=== PATIENT | male | born 1985 | race Hispanic/Latino ===

== ENCOUNTER 2019-03-16 10:29 | Emergency (ER) | payer OTHER ==
[2019-03-16] MEDS ORDERED: TORADOL IM ONE (10:56)
--- NOTE | 2019-03-16 11:01 | Emergency Department Report ---
HPI - General Chief Complaint: Medical Clearance Time Seen by Provider: 03/16/19 10:48 - HPI HPI: Room 22 The patient is a 33-year-old male presenting with a chief complaint of back pain. The patient states he's had chronic pain in his low back and bilateral shoulder blades for approximately 1.5 years. The patient states this pain worsened over the past 2 months. Patient denies any recent trauma or fever. Patient states Tylenol and ibuprofen have not helped. The patient has a history of paroxysmal A. fib and states he believes his back pain causes his heart fluttering at times. The patient currently gets his pain score 10/10 Location: [See above] Duration: [See above] Quality: [See above] Severity: [See above] Modifying factors: [see above] Context: [see above] Mode of transportation: [not driving] ED Past Medical Hx - Past Medical History Additional medical history: AFIB - Surgical History Past Surgical History?: No - Family History Family history: no significant - Social History Smoking Status: Current Every Day Smoker (1/2 pack per day) Substance Use Type: Marijuana - Medications Home Medications: Home Medications Medication Instructions Recorded Confirmed Last Taken Type Cyclobenzaprine [Flexeril] 10 mg PO TID PRN #14 tablet 03/16/19 Unknown Rx HYDROcodone/APAP 5-325 [[place] 1 - 2 each PO Q6HR PRN #14 tablet 03/16/19 Unknow n Rx 5/325] Ibuprofen [Motrin 800 MG tab] 800 mg PO Q8HR PRN #20 tablet 03/16/19 Unknown Rx ED Review of Systems ROS: Stated complaint: BACK PAIN Other details as noted in HPI Constitutional: denies: fever Eyes: denies: eye pain ENT: denies: throat pain Respiratory: no symptoms reported Cardiovascular: palpitations Endocrine: no symptoms reported Gastrointestinal: denies: abdominal pain Genitourinary: denies: dysuria Musculoskeletal: back pain Neurological: denies: headache Physical Exam - Physical Exam Vital Signs: Vital Signs 03/16/19 03/16/19 03/16/19 10:35 10:52 10:53 Temperature 97.9 F 97.9 F Pulse Rate 101 H 86 Respiratory 20 21 21 Rate Blood Pressure 146/96 Blood Pressure 136/73 [Left] O2 Sat by Pulse 99 94 95 Oximetry Physical Exam: GENERAL: The patient is well-developed well-nourished male lying on stretcher not appearing to be in acute distress. [] HEENT: Normocephalic. Atraumatic. Extraocular motions are intact. Patient has moist mucous membranes. NECK: Supple. No meningitic signs are noted. Trachea midline CHEST/LUNGS: Clear to auscultation. There is no respiratory distress noted. HEART/CARDIOVASCULAR: Regular. There is no tachycardia. There is no gallop rub or murmur. ABDOMEN: Abdomen is soft, nontender. Patient has normal bowel sounds. There is no abdominal distention. SKIN: There is no rash. There is no edema. There is no diaphoresis. NEURO: The patient is awake, alert, and oriented. The patient is cooperative. The patient has no focal neurologic deficits. The patient has normal speech. Cranial nerves II through XII grossly intact, no drift MUSCULOSKELETAL: There is no evidence of acute injury. ED Course Vital Signs 03/16/19 03/16/19 03/16/19 10:35 10:52 10:53 Temperature 97.9 F 97.9 F Pulse Rate 101 H 86 Respiratory 20 21 21 Rate Blood Pressure 146/96 Blood Pressure 136/73 [Left] O2 Sat by Pulse 99 94 95 Oximetry ED Medical Decision Making - EKG Data -: EKG Interpreted by Me EKG shows normal: sinus rhythm Rate: normal - EKG Data When compared to previous EKG there are: previous EKG unavailable Interpretation: normal EKG - Radiology Data Radiology results: image reviewed (lumbar spine x-ray) interpreted by me: Lumbar spine x-ray-no acute fracture. Normal disc spaces - Differential Diagnosis acute on chronic back pain Critical care attestation.: If time is entered above; I have spent that time in minutes in the direct care of this critically ill patient, excluding procedure time. ED Disposition Clinical Impression: Acute exacerbation of chronic low back pain Disposition: DC-01 TO HOME OR SELFCARE Is pt being admited?: No Does the pt Need Aspirin: No Condition: Stable Instructions: Chronic Back Pain (ED) Additional Instructions: Return to the emergency department immediately should you develop worsening symptoms, fever, inability to tolerate food or liquid or any other concerns. Prescriptions: Cyclobenzaprine [Flexeril] 10 mg PO TID PRN #14 tablet PRN Reason: Muscle Spasm Ibuprofen [Motrin 800 MG tab] 800 mg PO Q8HR PRN #20 tablet PRN Reason: Pain, Moderate (4-6) HYDROcodone/APAP 5-325 [[place] 5/325] 1 - 2 each PO Q6HR PRN #14 tablet PRN Reason: Pain Referrals: KATHRYN HANSON MD [Staff Physician] - 3-5 Days JOSE ENRIQUE PALAFOX MD [Staff Physician] - 3-5 Days (Dr. Palafox is an orthopedic surgeon. Please follow with him for further evaluation) Time of Disposition: 12:06
[2019-03-16 12:27] VITALS: BP 121/71
--- NOTE | 2019-03-16 14:25 | XRay Report ---
PROCEDURE: XR SPINE LUMBOSACRAL 2-3V TECHNIQUE: AP, lateral and lumbosacral spot views of the lumbar spine. HISTORY: low back pain COMPARISONS: None. FINDINGS: There are five lumbar type vertebral bodies. Mild anterior osteophyte formations are seen in the lowe r thoracic and mid lumbar spine. Normal alignment. No compression fracture. The disc spaces are maintained. The paravertebral soft tissues are normal. IMPRESSION: Mild degenerative spondylosis of the lower thoracic and lumbar spine. This document is electronically signed by Aspen Coello., March 16 2019 02:23:45 PM ET
== END 2019-03-16 12:34 | disposition home or self-care (01) ==
LOC: ED 10:29
DX: M54.5 Low back pain (principal); M25.511 Pain in right shoulder; M25.512 Pain in left shoulder; F17.200 Nicotine dependence, unspecified, uncomplicated; F12.10 Cannabis abuse, uncomplicated
CPT/HCPCS: 72100; 93005; 93010; 96372; 99283; J1885

== ENCOUNTER 2019-09-07 13:09 | Emergency (ER) | payer OTHER ==
[2019-09-07 13:17] VITALS: BP 156/90
== END 2019-09-07 17:12 | disposition home or self-care (01) ==
LOC: ED 13:09
DX: R10.10 Upper abdominal pain, unspecified (principal); M54.9 Dorsalgia, unspecified; I48.91 Unspecified atrial fibrillation; F10.10 Alcohol abuse, uncomplicated; F17.200 Nicotine dependence, unspecified, uncomplicated; F12.10 Cannabis abuse, uncomplicated; Z79.899 Other long term (current) drug therapy
CPT/HCPCS: 36415; 72072; 80053; 85025

== ENCOUNTER 2021-01-29 14:27 | Observation (INO) | payer SELFPAY ==
--- NOTE | 2021-01-29 14:46 | Event Note ---
ED Screening Note ED Screening Note: Patient presents for chest pain, palpitations, diaphoresis, shortness of breath that began 4 hours ago Patient has a history of A. fib and has been off of his metoprolol for few months He states he previously was a heavy drinker but stopped drinking which improved his A. fib He denies being on any anticoagulation He states he does take an aspirin daily He states he has a history of chronic pain and previously took Lortab He denies any medication allergies This initial assessment/diagnostic orders/clinical plan/treatment(s) is/are subject to change based on patients health status, clinical progression and re- assessment by fellow clinical providers in the ED. Further treatment and workup at subsequent clinical providers discretion. Patient/guardian urged not to elope from the ED as their condition may be serious if not clinically assessed and managed. Initial orders include: Chest pain protocol EKG shows A. fib with rate of 160 Charge nurse katy MCKEON notified, she states that patient go to room 17 in the main ED
[2021-01-29] MEDS ORDERED: METOPROLOL TARTRATE 5 MG/5 ML INJ IV ONE (15:09)
[2021-01-29] MEDS ORDERED: SODIUM CHLORIDE 0.9% 1000 ML 1,000 ML IV ONE ×2 (15:18→16:55)
[2021-01-29 15:23] LABS: Mean Corpuscular HGB Conc 36 % (32-34); Mean Corpuscular Volume 90 fl (84-94); Platelet Count 415 K/mm3 (140-440); Red Blood Count 5.49 M/mm3 (3.65-5.03); Red Cell Distribution Width 13.8 % (13.2-15.2)
[2021-01-29 15:37] LABS: Alanine Aminotransferase 9 units/L (7-56); Albumin 4.8 g/dL (3.9-5); BUN/Creatinine Ratio 11; Blood Urea Nitrogen 9 mg/dL (9-20); Calcium 9.7 mg/dL (8.4-10.2); Hemolysis Index 3
--- NOTE | 2021-01-29 15:38 | Emergency Department Report ---
ED Palpitations HPI - General Chief Complaint: Chest Pain Stated Complaint: CHEST PAINS Time Seen by Provider: 01/29/21 14:43 Source: patient Mode of arrival: Ambulatory Limitations: No Limitations - History of Present Illness Initial Comments: 35-year-old male presents to ED with palpitations. Patient states, "I think it is my A. fib." Patient states he was diagnosed with A. fib at age of 26. Reports onset of the palpitations while he was watching TV. Patient reports heart racing, whole body paresthesias, some mild shortness of breath. He denies any chest pain. Patient reports he stopped taking his metoprolol approximately 8 months ago because he states that he cannot afford it. Patient reports tobacco and marijuana use. MD Complaint: "heart racing", atrial fibrillation -: This afternoon Context: occured during rest Arrythmia History: atrial fibrillation Associated Symptoms: shortness of breath. denies: chest pain, syncope, nausea/vomiting, cough - Related Data Previous Rx's Medication Instructions Recorded Last Taken Type Cyclobenzaprine [Flexeril] 10 mg PO TID PRN #14 tablet 03/16/19 Unknown Rx HYDROcodone/APAP 5-325 [[place] 1 - 2 each PO Q6HR PRN #14 tablet 03/16/19 Unknown Rx 5/325] Ibuprofen [Motrin 800 MG tab] 800 mg PO Q8HR PRN #20 tablet 03/16/19 Unknown Rx Meloxicam [Mobic] 15 mg PO DAILY #10 tablet 09/07/19 Unknown Rx Allergies Allergy/AdvReac Type Severity Reaction Status Date / Time No Known Allergies Allergy Unverified 03/16/19 10:30 ED Review of Systems ROS: Stated complaint: CHEST PAINS Other details as noted in HPI Comment: All other systems reviewed and negative Constitutional: denies: chills, fever Respiratory: shortness of breath Cardiovascular: palpitations. denies: chest pain ED Past Medical Hx - Past Medical History Previous Medical History?: Yes Hx Heart Attack/AMI: (a Fib) Hx Psychiatric Treatment: Yes (Alcoholic) Additional medical history: AFIB, Alcohol abuse - Social History Smoking Status: Current Every Day Smoker Substance Use Type: Marijuana - Medications Home Medications: Home Medications Medication Instructions Recorded Confirmed Last Taken Type Cyclobenzaprine [Flexeril] 10 mg PO TID PRN #14 tablet 03/16/19 Unknown Rx HYDROcodone/APAP 5-325 [[place] 1 - 2 each PO Q6HR PRN #14 tablet 03/16/19 Unknown Rx 5/325] Ibuprofen [Motrin 800 MG tab] 800 mg PO Q8HR PRN #20 tablet 03/16/19 Unknown Rx Meloxicam [Mobic] 15 mg PO DAILY #10 tablet 09/07/19 Unknown Rx ED Physical Exam - General Limitations: No Limitations General appearance: alert, in no apparent distress - Head Head exam: Present: atraumatic, normocephalic - Eye Eye exam: Present: normal appearance, EOMI - ENT ENT exam: Present: mucous membranes moist - Neck Neck exam: Present: normal inspection - Respiratory Respiratory exam: Present: normal lung sounds bilaterally. Absent: respiratory distress - Cardiovascular Cardiovascular Exam: Present: tachycardia, irregular rhythm - GI/Abdominal GI/Abdominal exam: Present: soft. Absent: distended, tenderness - Extremities Exam Extremities exam: Present: normal inspection - Neurological Exam Neurological exam: Present: alert, oriented X3 - Psychiatric Psychiatric exam: Present: normal affect, normal mood - Skin Skin exam: Present: warm, dry, intact, normal color ED Course Vital Signs 01/29/21 01/29/21 01/29/21 14:40 15:05 15:13 Temperature 98.0 F Pulse Rate 98 H Respiratory 20 15 20 Rate Blood Pressure 133/109 O2 Sat by Pulse 100 100 Oximetry 01/29/21 01/29/21 01/29/21 15:15 15:21 15:31 Temperature Pulse Rate 173 H 123 H 102 H Respiratory 19 18 Rate Blood Pressure 133/89 136/79 O2 Sat by Pulse 99 100 Oximetry 01/29/21 01/29/21 01/29/21 15:45 16:01 16:15 Temperature Pulse Rate 86 103 H 96 H Respiratory 21 18 12 Rate Blood Pressure 136/97 128/88 139/94 O2 Sat by Pulse 99 98 100 Oximetry 01/29/21 01/29/21 01/29/21 16:31 16:45 17:01 Temperature Pulse Rate 101 H 100 H 104 H Respiratory 15 18 18 Rate Blood Pressure 129/87 125/77 134/78 O2 Sat by Pulse 99 100 99 Oximetry 01/29/21 01/29/21 01/29/21 17:15 17:31 17:51 Temperature Pulse Rate 91 H 105 H 97 H Respiratory 15 24 20 Rate Blood Pressure 132/85 132/85 O2 Sat by Pulse 99 99 97 Oximetry 01/29/21 01/29/21 01/29/21 17:59 18:01 18:15 Temperature Pulse Rate 97 H 110 H 89 Respiratory 22 16 Rate Blood Pressure 115/86 115/86 113/86 O2 Sat by Pulse 99 100 Oximetry - Consultations Consultation #1: 01/29/21 16:34 Patient seen and evaluated by cardiology. Would like obs admission for echo. ED Medical Decision Making - Lab Data Result diagrams: 01/29/21 14:46 01/29/21 14:46 - EKG Data -: EKG Interpreted by Ma EKG shows normal: QRS complexes, ST-T waves Rate: tachycardia (rate 163) - EKG Data Interpretation: other (Atrial fibrillation) - Radiology Data Radiology results: report reviewed, image reviewed - Medical Decision Making 35-year-old male presents to ED in A. fib with RVR. Patient reports he has been noncompliant with his metoprolol for about 8 months now. Patient given 5 of metoprolol with improvement of his rate. Troponin is normal. Chest x-ray is unremarkable. Cardiology was consulted and they recommended admission and ECHO. Patient will be admitted by hospitalist, Dr. Montero, for further management. - Differential Diagnosis A. fib with RVR, ACS, CHF Critical Care Time: Yes Critical care time in (mins) excluding proc time.: 35 Critical care attestation.: If time is entered above; I have spent that time in minutes in the direct care of this critically ill patient, excluding procedure time. Critical Care Time: 35 min ED Disposition Clinical Impression: Atrial fibrillation with RVR Disposition: OP ADMIT IP TO THIS HOSP Is pt being admited?: Yes Condition: Stable Time of Disposition: 16:42
[2021-01-29 15:45] LABS: Hemoglobin 17.7 gm/dl (11.8-15.2)
[2021-01-29 15:46] LABS: Hematocrit 49.6 % (35.5-45.6)
--- NOTE | 2021-01-29 15:56 | XRay Report ---
CHEST 1 VIEW 01/29/2021 2:43 PM INDICATION / CLINICAL INFORMATION: Chest Pain. COMPARISON: None available. FINDINGS: SUPPORT DEVICES: None. HEART / MEDIASTINUM: No significant abnormality. LUNGS / PLEURA: Clear lungs. No significant pleural effusion. No pneumothorax. ADDITIONAL FINDINGS: No significant additional findings. IMPRESSION: 1. No acute abnormality of the chest. Signer Name: Yunier Carey MD Signed: 01/29/2021 3:51 PM Workstation Name: [id number]
--- NOTE | 2021-01-29 16:45 | History and Physical Report ---
History of Present Illness Chief complaint: I think its my A Fib History of present illness: 35 YO Male with Nicotine Dependence, Obesity, Paroxysmal Atrial Fib not taking anticoagulation presents to ED for evaluation. Patient reports "my heart is racing". Patient states that he experienced a sudden onset of heart p alpitations today. Patient acknowledges feeling weak and lightheaded. Patient also acknowledges decreased exercise tolerance, and shortness of breath. Patient transported to [facility] via private vehicle for further care and evaluation of the aforementioned symptoms. Patient seen and evaluated in the emergency department. All lab and imaging studies reviewed. Patient found to have atrial fibrillation with rapid ventricular response and was initiated on beta-zack therapy with mild improvement in symptoms. Patient placed in observation status and admitted to telemetry for further care and evaluation. Cardiology team consulted in ED. Patient denies fever, chills, chest pain, productive cough, skin rash, recent ill contacts, usage of herbal supplements/stimulants, or known exposure to COVID-19. No prior admission for review. No medication listed at time of admission for reconciliation. Past History Past Medical History: atrial fib, other (See HPI) Past Surgical History: No surgical history, Other (Reviewed) Social history: single, smoking Family history: hypertension Medications and Allergies Allergies Allergy/AdvReac Type Severity Reaction Status Date / Time No Known Allergies Allergy Unverified 03/16/19 10:30 Home Medications Medication Instructions Recorded Confirmed Last Taken Type Cyclobenzaprine [Flexeril] 10 mg PO TID PRN #14 tablet 03/16/19 Unknown Rx HYDROcodone/APAP 5-325 [[place] 1 - 2 each PO Q6HR PRN #14 tablet 03/16/19 Unknown Rx 5/325] Ibuprofen [Motrin 800 MG tab] 800 mg PO Q8HR PRN #20 tablet 03/16/19 Unknown Rx Meloxicam [Mobic] 15 mg PO DAILY #10 tablet 09/07/19 Unknown Rx Review of Systems Constitutional: no fever, no chills Ears, nose, mouth and throat: no ear pain, no tinnitis, no nose pain, no nasal congestion, no nasal discharge Cardiovascular: palpitations, lightheadedness, shortness of breath, no chest pain, no dyspnea on exertion, no paroxysmal nocturnal dyspnea, no claudication, no phlebitis, no high blood pressure Respiratory: no cough, no cough with sputum, no excessive sputum, no hemoptysis, no dyspnea on exertion Gastrointestinal: no abdominal pain, no nausea, no vomiting, no diarrhea, no constipation Genitourinary Male: no hematuria, no flank pain, no discharge, no urinary frequency, no nocturia, no incontinence Rectal: no pain, no incontinence, no bleeding Musculoskeletal: no neck stiffness, no neck pain, no arm numbness/tingling, no low back pain, no shooting leg pain Integumentary: no rash, no pruritis, no redness, no sores, no wounds, no jaundice, no boils Neurological: no head injury, no transient paralysis, no paralysis, no pa rathesias, no numbness, no tingling, no seizures, no syncope Psychiatric: no anxiety, no memory loss, no sleep disturbances, no insomnia, no hypersomnia, no change in appetite, no change in libido, no suicidal ideation, no hallucinations Endocrine: no cold intolerance, no heat intolerance, no polyphagia, no excessive thirst, no polydipsia, no polyuria Hematologic/Lymphatic: no easy bruising, no easy bleeding, no lymphadenopathy, no lymphedema Allergic/Immunologic: no urticaria, no allergic rhinitis, no anaphylaxis, no angioedema Exam - Constitutional Vitals: Temp Pulse Resp BP Pulse Ox 98.0 F 101 H 15 129/87 99 01/29/21 14:40 01/29/21 16:31 01/29/21 16:31 01/29/21 16:31 01/29/21 16:31 General appearance: Present: mild distress, obese - EENT Eyes: Present: PERRL ENT: hearing intact, clear oral mucosa - Neck Neck: Present: supple, normal ROM - Respiratory Respiratory effort: normal Respiratory: bilateral: CTA - Cardiovascular Rhythm: irregularly irregular Heart Sounds: Present: S1 & S2. Absent: rub, click - Extremities Extremities: pulses symmetrical, No edema Peripheral Pulses: within normal limits - Abdominal General gastrointestinal: Present: soft, non-tender, non-distended, normal bowel sounds Male genitourinary: Present: normal - Integumentary Integumentary: Present: clear, warm, dry - Musculoskeletal Musculoskeletal: gait normal, strength equal bilaterally - Psychiatric Psychiatric: appropriate mood/affect, intact judgment & insight - Neurologic Neurologic: CNII-XII intact, moves all extremities HEART Score - HEART Score Troponin: Troponin T < 0.010 ng/mL (0.00-0.029) 01/29/21 14:46 Results - Labs CBC & Chem 7: 01/29/21 14:46 01/29/21 14:46 Labs: Abnormal lab results 01/29/21 01/29/21 Range/Units 14:46 14:46 WBC 15.1 H (4.5-11.0) K/mm3 RBC 5.49 H (3.65-5.03) M/mm3 Hgb 17.7 H (11.8-15.2) gm/dl Hct 49.6 H (35.5-45.6) % MCHC 36 H (32-34) % Glucose 101 H (75-100) mg/dL Assessment and Plan - Patient Problems (1) Atrial fibrillation with RVR Current Visit: No Status: Chronic Plan to address problem: Cardiology team consulted in ED, patient reinitiated on beta-zack therapy with normalization of heart rate, thyroid panel, magnesium level, echocardiogram ordered and is pending at time of admission, urine drug screen. (2) Systemic inflammatory response syndrome Current Visit: Yes Status: Acute Plan to address problem: Chest x-ray, CBC, BMP, urinalysis, empiric IV antibiotic therapy x1 dose, repeat CBC in a.m. (3) Noncompliance with medication regimen Current Visit: Yes Status: Acute Plan to address problem: Patient counseled regarding medication noncompliance. Behavior change counseling, +30 minutes. Additional care time dedicated to explanation of atrial fibrillation and treatment options. (4) Nicotine dependence Current Visit: Yes Status: Acute Qualifiers: Nicotine product type: cigarettes Substance use status: in withdrawal Qualified Code(s): F17.213 - Nicotine dependence, cigarettes, with withdrawal Plan to address problem: Smoking cessation counseling, supportive care. Behavior change counseling, +15 minutes. (5) Obesity Current Visit: Yes Status: Acute Plan to address problem: Balanced diet, increase physical activity discharge. Patient counseled regarding meal planning. (6) DVT prophylaxis Current Visit: No Status: Acute Plan to address problem: SCD to bilateral lower extremities while in bed, patient is ambulatory.
[2021-01-29] MEDS ORDERED: METOPROLOL TARTRATE 50 MG TAB PO SCH (16:47)
[2021-01-29] MEDS ORDERED: ACETAMINOPHEN 325 MG TAB PO PRN (17:00)
[2021-01-29] MEDS ORDERED: ONDANSETRON 4 MG/2 ML INJ IV PRN (17:00)
[2021-01-29 17:37] LABS: Total Cells Counted 100
[2021-01-29 17:38] LABS: RBC Morphology Normal
[2021-01-29 17:49] LABS: Bilirubin,Urine NEG (Negative); Blood,Urine NEG (Negative); Color,Urine Straw (Yellow); Protein,Urine <15 mg/dL mg/dL (Negative); Urobilinogen,Urine < 2.0 mg/dL (<2.0); WBC,Urine < 1.0 /HPF (0.0-6.0)
[2021-01-29 17:57] LABS: Amphetamine Screen,Urine Negative; Benzodiazepines Screen,Urine Negative; Cocaine Screen,Urine Negative; Methadone Screen,Urine Negative; Opiate Screen,Urine Negative
[2021-01-29] MEDS: METOPROLOL TARTRATE 25 MG TAB PO SCH ×2 (17:59→22:36)
[2021-01-29] MEDS ORDERED: cefTRIAXone/NS 1 GM/50 ML 1 GM/50 ML BAG IV ONE (18:00)
[2021-01-29 18:15] LABS: Cannabinoid Screen,Urine Positive
[2021-01-29 19:46] LABS: Free T4 (Free Thyroxine) 1.51 ng/dL (0.76-1.46)
[2021-01-29] MEDS: HEPARIN 5,000 UNIT/1 ML VIAL SUB-Q SCH (22:35)
[2021-01-30 06:04] LABS: Hematocrit 46.8 % (35.5-45.6); Hemoglobin 15.6 gm/dl (11.8-15.2); Mean Corpuscular HGB Conc 33 % (32-34); Mean Corpuscular Volume 90 fl (84-94); Platelet Count 353 K/mm3 (140-440); Red Blood Count 5.19 M/mm3 (3.65-5.03); Red Cell Distribution Width 13.9 % (13.2-15.2)
[2021-01-30 06:24] LABS: Blood Urea Nitrogen 11 mg/dL (9-20); Calcium 8.6 mg/dL (8.4-10.2); Hemolysis Index 21
[2021-01-30 06:30] LABS: BUN/Creatinine Ratio 16
[2021-01-30 09:30] VITALS: BP 115/72
[2021-01-30] MEDS: HEPARIN 5,000 UNIT/1 ML VIAL SUB-Q SCH (09:30)
[2021-01-30] MEDS: METOPROLOL TARTRATE 25 MG TAB PO SCH (09:30)
[2021-01-30] MEDS ORDERED: ASPIRIN 325 MG TAB PO SCH (10:00)
--- NOTE | 2021-01-30 10:53 | Progress Note ---
History Interval history: 01/30. Patient seen and examined at bedside this morning he denies any complaints. On metoprolol 25 mg twice daily. Echocardiogram performed-EF 55 to 60% with no significant valvular abnormalities. Heart rate is well controlled. Telemetry-atrial fibrillation. Hospitalist Physical - Constitutional Vitals: Temp Pulse Resp BP Pulse Ox 98.5 F 88 18 115/72 96 01/30/21 09:30 01/30/21 09:30 01/30/21 09:30 01/30/21 09:30 01/30/21 09:30 General appearance: Present: mild distress, obese - Respiratory Respiratory: bilateral: CTA - Extremities Extremities: no ischemia - Abdominal General gastrointestinal: soft, non-tender, non-distended - Neurologic Neurologic: CNII-XII intact HEART Score - HEART Score Troponin: Troponin T < 0.010 ng/mL (0.00-0.029) 01/30/21 04:21 Results - Labs CBC & Chem 7: 01/30/21 04:21 01/30/21 04:21 Labs: Laboratory Last Values WBC 11.6 K/mm3 (4.5-11.0) H 01/30/21 04:21 RBC 5.19 M/mm3 (3.65-5.03) H 01/30/21 04:21 Hgb 15.6 gm/dl (11.8-15.2) H 01/30/21 04:21 Hct 46.8 % (35.5-45.6) H 01/30/21 04:21 MCV 90 fl (84-94) 01/30/21 04:21 MCH 30 pg (28-32) 01/30/21 04:21 MCHC 33 % (32-34) 01/30/21 04:21 RDW 13.9 % (13.2-15.2) 01/30/21 04:21 Plt Count 353 K/mm3 (140-440) 01/30/21 04:21 Lymph # (Auto) [facility] 01/29/21 14:46 Add Manual Diff Complete 01/29/21 14:46 Total Counted 100 01/29/21 14:46 Seg Neuts % (Manual) 59.0 % (40.0-70.0) 01/29/21 14:46 Lymphocytes % (Manual) 33.0 % (13.4-35.0) 01/29/21 14:46 Monocytes % (Manual) 8.0 % (0.0-7.3) H 01/29/21 14:46 Nucleated RBC % Not Reportable 01/29/21 14:46 Seg Neutrophils # Man 8.9 K/mm3 (1.8-7.7) H 01/29/21 14:46 Band Neutrophils # 0.0 K/mm3 01/29/21 14:46 Lymphocytes # (Manual) 5.0 K/mm3 (1.2-5.4) 01/29/21 14:46 Abs React Lymphs (Man) 0.0 K/mm3 01/29/21 14:46 Monocytes # (Manual) 1.2 K/mm3 (0.0-0.8) H 01/29/21 14:46 Eosinophils # (Manual) 0.0 K/mm3 (0.0-0.4) 01/29/21 14:46 Basophils # (Manual) 0.0 K/mm3 (0.0-0.1) 01/29/21 14:46 Metamyelocytes # 0.0 K/mm3 01/29/21 14:46 Myelocytes # 0.0 K/mm3 01/29/21 14:46 Promyelocytes # 0.0 K/mm3 01/29/21 14:46 Blast Cells # 0.0 K/mm3 01/29/21 14:46 WBC Morphology Not Reportable 01/29/21 14:46 Hypersegmented Neuts Not Reportable 01/29/21 14:46 Hyposegmented Neuts Not Reportable 01/29/21 14:46 Hypogranular Neuts Not Reportable 01/29/21 14:46 Smudge Cells Not Reportable 01/29/21 14:46 Toxic Granulation Not Reportable 01/29/21 14:46 Toxic Vacuolation Not Reportable 01/29/21 14:46 Dohle Bodies Not Reportable 01/29/21 14:46 Pelger-Huet Anomaly Not Reportable 01/29/21 14:46 Vince Rods Not Reportable 01/29/21 14:46 Platelet Estimate Not Reportable 01/29/21 14:46 Clumped Platelets Not Reportable 01/29/21 14:46 Plt Clumps, EDTA Not Reportable 01/29/21 14:46 Large Platelets Not Reportable 01/29/21 14:46 Giant Platelets Not Reportable 01/29/21 14:46 Platelet Satelliting Not Reportable 01/29/21 14:46 Plt Morphology Comment Not Reportable 01/29/21 14:46 RBC Morphology Normal 01/29/21 14:46 Dimorphic RBCs Not Reportable 01/29/21 14:46 Polychromasia Not Reportable 01/29/21 14:46 Hypochromasia Not Reportable 01/29/21 14:46 Poikilocytosis Not Reportable 01/29/21 14:46 Anisocytosis Not Reportable 01/29/21 14:46 Microcytosis Not Reportable 01/29/21 14:46 Macrocytosis Not Reportable 01/29/21 14:46 Spherocytes Not Reportable 01/29/21 14:46 Pappenheimer Bodies Not Reportable 01/29/21 14:46 Sickle Cells Not Reportable 01/29/21 14:46 Target Cells Not Reportable 01/29/21 14:46 Tear Drop Cells Not Reportable 01/29/21 14:46 Ovalocytes Not Reportable 01/29/21 14:46 Helmet Cells Not Reportable 01/29/21 14:46 [place] Bodies Not Reportable 01/29/21 14:46 [place] Rings Not Reportable 01/29/21 14:46 Arbon Cells Not Reportable 01/29/21 14:46 Bite Cells Not Reportable 01/29/21 14:46 Crenated Cell Not Reportable 01/29/21 14:46 Elliptocytes Not Reportable 01/29/21 14:46 Acanthocytes (Spur) Not Reportable 01/29/21 14:46 Rouleaux Not Reportable 01/29/21 14:46 Hemoglobin C Crystals Not Reportable 01/29/21 14:46 Schistocytes Not Reportable 01/29/21 14:46 Malaria parasites Not Reportable 01/29/21 14:46 Cristi Bodies Not Reportable 01/29/21 14:46 Hem Pathologist Commnt No 01/29/21 14:46 Sodium 140 mmol/L (137-145) 01/30/21 04:21 Potassium 4.0 mmol/L (3.6-5.0) 01/30/21 04:21 Chloride 104.8 mmol/L (98-107) 01/30/21 04:21 Carbon Dioxide 23 mmol/L (22-30) 01/30/21 04:21 Anion Gap 16 mmol/L 01/30/21 04:21 BUN 11 mg/dL (9-20) 01/30/21 04:21 Creatinine 0.7 mg/dL (0.8-1.3) L 01/30/21 04:21 Estimated GFR > 60 ml/min 01/30/21 04:21 BUN/Creatinine Ratio 16 % 01/30/21 04:21 Glucose 76 mg/dL (75-100) 01/30/21 04:21 Calcium 8.6 mg/dL (8.4-10.2) 01/30/21 04:21 Magnesium 2.20 mg/dL (1.7-2.3) 01/29/21 14:46 Total Bilirubin 0.40 mg/dL (0.1-1.2) 01/29/21 14:46 AST 11 units/L (5-40) 01/29/21 14:46 ALT 9 units/L (7-56) 01/29/21 14:46 Alkaline Phosphatase 72 units/L (35-129) 01/29/21 14:46 Total Creatine Kinase 65 units/L (55-170) 01/29/21 14:46 Troponin T < 0.010 ng/mL (0.00-0.029) 01/30/21 04:21 Total Protein 7.8 g/dL (6.3-8.2) 01/29/21 14:46 Albumin 4.8 g/dL (3.9-5) 01/29/21 14:46 Albumin/Globulin Ratio 1.6 % 01/29/21 14:46 TSH 1.010 mlU/mL (0.270-4.200) 01/29/21 16:48 Free T4 1.51 ng/dL (0.76-1.46) H 01/29/21 16:48 Urine Color Straw (Yellow) 01/29/21 17:32 Urine Turbidity Clear (Clear) 01/29/21 17:32 Urine pH 7.0 (5.0-7.0) 01/29/21 17:32 Ur Specific [place] 1.005 (1.003-1.030) 01/29/21 17:32 Urine Protein <15 mg/dl mg/dL (Negative) 01/29/21 17:32 Urine Glucose (UA) Neg mg/dL (Negative) 01/29/21 17:32 Urine Ketones Tr mg/dL (Negative) 01/29/21 17:32 Urine Blood Neg (Negative) 01/29/21 17:32 Urine Nitrite Neg (Negative) 01/29/21 17:32 Urine Bilirubin Neg (Negative) 01/29/21 17:32 Urine Urobilinogen < 2.0 mg/dL (<2.0) 01/29/21 17:32 Ur Leukocyte Esterase Neg (Negative) 01/29/21 17:32 Urine WBC (Auto) < 1.0 /HPF (0.0-6.0) 01/29/21 17:32 Urine RBC (Auto) 1.0 /HPF (0.0-6.0) 01/29/21 17:32 Urine Opiates Screen Negative 01/29/21 17:32 Urine Methadone Screen Negative 01/29/21 17:32 Ur Barbiturates Screen Negative 01/29/21 17:32 Ur Phencyclidine Scrn Negative 01/29/21 17:32 Ur Amphetamines Screen Negative 01/29/21 17:32 U Benzodiazepines Scrn Negative 01/29/21 17:32 Urine Cocaine Screen Negative 01/29/21 17:32 U Marijuana (THC) Screen Positive 01/29/21 17:32 Drugs of Abuse Note Disclamer 01/29/21 17:32 Conley/IV: Voiding Method Toilet Active Medications - Current Medications Current Medications: Generic Name Dose Route Start Last Admin Trade Name Freq PRN Reason Stop Dose Admin Acetaminophen 650 mg 01/29/21 17:00 Acetaminophen 325 Mg Tab PO Q4H PRN Pain MILD(1-3)/Fever >100.5/LUNDY Aspirin 325 mg 01/30/21 10:00 01/30/21 09:30 Aspirin 325 Mg Tab PO 325 mg QDAY JUSTIN Administration Heparin Sodium (Porcine) 5,000 unit 01/29/21 22:00 01/30/21 09:30 Heparin 5,000 Unit/1 Ml Vial SUB-Q 5,000 unit BID JUSTIN Administration Metoprolol Tartrate 25 mg 01/29/21 17:00 01/30/21 09:30 Metoprolol Tartrate 25 Mg Tab PO 25 mg BID JUSTIN Administration Ondansetron HCl 4 mg 01/29/21 17:00 Ondansetron 4 Mg/2 Ml Inj IV Q8H PRN Nausea And Vomiting Sodium Chloride 10 ml 01/29/21 22:00 01/30/21 09:30 Sodium Chloride 0.9% 10 Ml Flush Syringe IV 10 ml BID JUSTIN Administration Sodium Chloride 10 ml 01/29/21 17:00 Sodium Chloride 0.9% 10 Ml Flush Syringe IV PRN PRN LINE FLUSH
--- NOTE | 2021-01-30 11:38 | Consultation ---
History of Present Illness Consult date: 01/30/21 Consult reason: atrial fibrillation History of present illness: Patient was admitted from the emergency room with a diagnosis of atrial fibrillation with rapid ventricle response and presently his heart rate is under control. His symptoms of chest pain shortness of breath got better. His symptoms started few days ago. Used to have similar symptoms with episodes of atrial fibrillation. He is to be followed in [place] by Dr. Adam. He is to take beta-zack injection to pain medication. Denies any previous history of hypertension, diabetes or pulmonary problems. Except that he has history of asthma as a child. Presently is not taking any medication. Past History Past Medical History: atrial fib, other (See HPI patient denies any previous cardiac history except for history of atrial fibrillation of longstanding duration. No history of myocardial infarction or congestive heart failure and no history of strokes or seizures.) Past Surgical History: No surgical history, Other (Reviewed) Social history: single, smoking, other (Patient is single, lives with his mother in [place]. 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 He used to live in [place] but moved to this area recently. He does not have any physician in this area.) Family history: hypertension Medications and Allergies Allergies Allergy/AdvReac Type Severity Reaction Status Date / Time No Known Allergies Allergy Unverified 03/16/19 10:30 Home Medications Medication Instructions Recorded Confirmed Last Taken Type Acetaminophen/Dp-Hydramine 1 each PO QDAY PRN 01/29/21 01/29/21 Unknown History [[employer] Pm Powder Packet] Active Meds: Active Medications Acetaminophen (Acetaminophen 325 Mg Tab) 650 mg PO Q4H PRN PRN Reason: Pain MILD(1-3)/Fever >100.5/LUNDY Aspirin (Aspirin 325 Mg Tab) 325 mg PO QDAY [facility] Last Admin: 01/30/21 09:30 Dose: 325 mg Documented by: Heparin Sodium (Porcine) (Heparin 5,000 Unit/1 Ml Vial) 5,000 unit SUB-Q BID [facility] Last Admin: 01/30/21 09:30 Dose: 5,000 unit Documented by: Metoprolol Tartrate (Metoprolol Tartrate 25 Mg Tab) 25 mg PO BID [facility] Last Admin: 01/30/21 09:30 Dose: 25 mg Documented by: Ondansetron HCl (Ondansetron 4 Mg/2 Ml Inj) 4 mg IV Q8H PRN PRN Reason: Nausea And Vomiting Sodium Chloride (Sodium Chloride 0.9% 10 Ml Flush Syringe) 10 ml IV BID JUSTIN Last Admin: 01/30/21 09:30 Dose: 10 ml Documented by: Sodium Chloride (Sodium Chloride 0.9% 10 Ml Flush Syringe) 10 ml IV PRN PRN PRN Reason: LINE FLUSH Review of Systems Ears, nose, mouth and throat: no ear discharge Cardiovascular: chest pain, palpitations, no high blood pressure Respiratory: no cough, no wheezing Gastrointestinal: no abdominal pain Genitourinary Male: no dysuria, no hematuria Rectal: no pain Musculoskeletal: no neck stiffness (Patient is to take low-dose for his back pain in the past. Presently his back is not bothering him.) Neurological: no syncope Psychiatric: no anxiety Endocrine: no cold intolerance, no heat intolerance Hematologic/Lymphatic: no easy bruising Allergic/Immunologic: no urticaria Physical Examination Vital Signs Temp Pulse Resp BP Pulse Ox 98.0 F 98 H 20 133/109 100 01/29/21 14:40 01/29/21 14:40 01/29/21 14:40 01/29/21 14:40 01/29/21 14:40 General appearance: no acute distress HEENT: Positive: PERRL Neck: Positive: neck supple, trachea midline Cardiac: Positive: irregularly irregular. Negative: Audible Murmur Lungs: Positive: Normal Exam Neuro: Positive: Grossly Intact Abdomen: Positive: Unremarkable Male genitourinary: Positive: deferred Skin: Negative: Rash Extremities: Present: normal Results 01/30/21 04:21 01/30/21 04:21 Cardiac Enzymes 01/29/21 Range/Units 14:46 AST 11 (5-40) units/L CBC 01/29/21 01/30/21 Range/Units 14:46 04:21 WBC 15.1 H 11.6 H (4.5-11.0) K/mm3 RBC 5.49 H 5.19 H (3.65-5.03) M/mm3 Hgb 17.7 H 15.6 H (11.8-15.2) gm/dl Hct 49.6 H 46.8 H (35.5-45.6) % Plt Count 415 353 (140-440) K/mm3 Lymph # (Auto) Nursing Agency Manager Comprehensive Metabolic Panel 01/29/21 01/30/21 Range/Units 14:46 04:21 Sodium 141 140 (137-145) mmol/L Potassium 3.8 4.0 (3.6-5.0) mmol/L Chloride 101.6 104.8 (98-107) mmol/L Carbon Dioxide 22 23 (22-30) mmol/L BUN 9 11 (9-20) mg/dL Creatinine 0.8 0.7 L (0.8-1.3) mg/dL Glucose 101 H 76 (75-100) mg/dL Calcium 9.7 8.6 (8.4-10.2) mg/dL AST 11 (5-40) units/L ALT 9 (7-56) units/L Alkaline Phosphatase 72 (35-129) units/L Total Protein 7.8 (6.3-8.2) g/dL Albumin 4.8 (3.9-5) g/dL Laboratory Tests 01/29/21 16:48 TSH 1.010 Free T4 1.51 H EKG interpretations - Telemetry EKG Rhythm: Atrial Fibrillation (EKG done at the time of admission that is at 01/29/2021 at 1430 hrs. showed atrial fibrillation with right axis deviation and low voltage in limb leads was noted at a rate of 163 bpm.) Assessment and Plan 35-year-old white gentleman with history of atrial fibrillation of many years duration, he apparently used to take metoprolol for many years, used to be followed by Dr. Adam in [place]. Recently he ran out of medication. He has history of atrial fibrillation in the past. However he did not see any physician in a while. He has not taken his medications. He used to take metoprolol regularly. For the last few days, patient is having rapid heartbeat sweating and shortness of breath and chest pain. This is his usual symptoms with atrial fibrillation. Presently after coming to the hospital, his heart rate is controlled and his symptoms improved. Echocardiogram was unremarkable. Considering patient has intermittent atrial fibrillation of long of longstanding duration,controlled on beta-zack in the past, will continue the same. Used to drink quite a bit of alcohol. But recently, says he says he is not drinking alcohol. He still uses marijuana, last time few days ago. He smokes half pack per day of cigarettes,used to nsmoke 2 ppd.. Considering his only 35-year-old ,with normal left ventricular systolic function and no other significant risk factors of hypertension or diabetes or thyroid problems, would continue beta-zack. His laboratory data are unremarkable. Because he is symptomatically better, he can be discharged home on metoprolol and can be followed as an outpatient. - Patient Problems (1) Atrial fibrillation with RVR Current Visit: Yes Status: Acute (2) Nicotine dependence Current Visit: Yes Status: Acute Qualifiers: Nicotine product type: cigarettes Substance use status: in withdrawal Qualified Code(s): F17.213 - Nicotine dependence, cigarettes, with withdrawal (3) Marijuana smoker Current Visit: No Status: Chronic
--- NOTE | 2021-01-30 12:30 | Discharge Summary ---
Providers - Providers Date of Admission: 01/29/21 16:44 Date of discharge: 01/30/21 Attending physician: NISHI RODRÍGUEZ 01/29/21 17:20 Consult to Physician [CONS] Stat Comment: Consulting Provider: KEERTHI RIOS Physician Instructions: Reason For Exam: afib Primary care physician: STERNMAN Hospitalization Condition: Stable Hospital course: 35 YO Male with Nicotine Dependence, Obesity, Paroxysmal Atrial Fib not taking anticoagulation presents to ED for evaluation. Patient reports "my heart is racing". Patient states that he experienced a sudden onset of heart palpitations today. Patient acknowledges feeling weak and lightheaded. Patient also acknowledges decreased exercise tolerance, and shortness of breath. Patient transported to [facility] via private vehicle for further care and evaluation of the aforementioned symptoms. Patient seen and evaluated in the emergency department. All lab and imaging studies reviewed. Patient found to have atrial fibrillation with rapid ventricular response and was initiated on beta-zack therapy with mild improvement in symptoms. Patient placed in observation status and admitted to telemetry for further care and evaluation. Cardiology team consulted in ED. Patient denies fever, chills, chest pain, productive cough, skin rash, recent ill contacts, usage of herbal supplements/stimulants, or known exposure to COVID-19. No prior admission for review. No medication listed at time of admission for reconciliation. Hospital course Patient was started on metoprolol 25 mg twice daily. His heart rate is well controlled. Rhythm is atrial fibrillation. Patient has been seen by cardiology who recommends discharge on current dose of metoprolol. Echocardiogram shows normal EF. Patient will follow up with cardiology in the office in a week. Disposition: TO HOME OR SELFCARE Final Discharge Diagnosis (Prints w/discharge instructions): Atrial fibrillation with RVR Time spent for discharge: 30 minutes Core Measure Documentation - Palliative Care Palliative Care/ Comfort Measures: Not Applicable - Core Measures Any of the following diagnoses?: none Exam - Constitutional Vitals: Temp Pulse Resp BP Pulse Ox 98.5 F 88 18 115/72 96 01/30/21 09:30 01/30/21 09:30 01/30/21 09:30 01/30/21 09:30 01/30/21 09:30 General appearance: Present: no acute distress, well-nourished - EENT Eyes: Present: PERRL ENT: hearing intact, clear oral mucosa - Neck Neck: Present: supple, normal ROM - Respiratory Respiratory effort: normal Respiratory: bilateral: CTA - Cardiovascular Heart Sounds: Present: S1 & S2. Absent: rub, click - Extremities Extremities: pulses symmetrical, No edema Peripheral Pulses: within normal limits - Abdominal General gastrointestinal: Present: soft, non-tender, non-distended, normal bowel sounds Male genitourinary: Present: normal - Integumentary Integumentary: Present: clear, warm, dry - Musculoskeletal Musculoskeletal: gait normal, strength equal bilaterally - Psychiatric Psychiatric: appropriate mood/affect, intact judgment & insight - Neurologic Neurologic: CNII-XII intact, moves all extremities Plan Additional Instructions: Continue metoprolol was ordered. Follow-up with cardiology in the office in 1 week Follow up with: PRIMARY CAREMD [Primary Care Provider] - 3-5 Days LUC ALLEN MD [Staff Physician] - 7 Days Prescriptions: Metoprolol [Lopressor TAB] 25 mg PO BID #60 tablet
--- NOTE | 2021-02-02 17:33 | Electrocardiograph Report ---
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
== END 2021-01-30 14:24 | disposition home or self-care (01) ==
LOC: ED 14:27 → 4A 16:44
PROVIDERS: ADMIT Internal Medicine; ATTEND Internal Medicine
DX: I48.0 Paroxysmal atrial fibrillation (principal); I48.20 Chronic atrial fibrillation, unspecified; R65.10 Systemic inflammatory response syndrome (SIRS) of non-infectious origin without acute organ dysfunction; E66.9 Obesity, unspecified; F17.210 Nicotine dependence, cigarettes, uncomplicated; F12.10 Cannabis abuse, uncomplicated; Z91.14 Patient's other noncompliance with medication regimen; Z79.82 Long term (current) use of aspirin; Z79.899 Other long term (current) drug therapy; Z68.32 Body mass index [BMI] 32.0-32.9, adult
CPT/HCPCS: 36415; 71045; 80048; 80053; 80307; 81001; 82550; 83735; 84439; 84443; 84484; 85007; 85025; 85027; 93005; 93306; 96361; 96365; 96372; 96375; 99291; G0378; J0696; J1644; J7030

== ENCOUNTER 2021-07-08 17:45 | Emergency (ER) | payer OTHER ==
[2021-07-08] MEDS ORDERED: CYCLOBENZAPRINE 10 MG TAB PO ONE (17:58)
[2021-07-08] MEDS ORDERED: KETOROLAC 60 MG/2 ML INJ IM ONE (17:58)
[2021-07-08] MEDS ORDERED: predniSONE 20 MG TAB PO ONE (17:58)
--- NOTE | 2021-07-08 18:28 | Emergency Department Report ---
ED Neck Pain/Injury HPI - General Chief Complaint: Back Pain/Injury Stated Complaint: BACK AND SHOULDER PAIN,FINGER TIPS NUMB Time Seen by Provider: 07/08/21 17:56 Mode of arrival: Ambulatory Limitations: No Limitations - History of Present Illness Initial Comments: This is a 36-year-old male nontoxic, well nourished in appearance, no acute signs of distress presents to the ED with c/o of upper back pain x1 week. 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 Patient states that pain radiates through to his bilateral upper extremities with some tingling and numbness sensation. Patient denies any injuries or trauma. Denies any bladder or bowel instability. Patient denies any urinary symptoms. Denies any fever, chills, nausea, vomiting, headache, stiff neck, chest pain or shortness of breath. Patient denies any numbness or tingling. Denies any allergies. Denies significant past medical history. MD Complaint: upper back pain -: week(s) Place: work Radiation: right upper extremity, left upper extremity Severity: mild Severity scale (0 -10): 8 Quality: aching Consistency: intermittent Improves With: immobilization, rest supine Worsens With: movement of neck Associated Symptoms: none. denies: headache, fever, numbness, tingling, weakness, vertigo, difficulty walking, swollen glands, difficulty swallowing, nausea, vomiting Treatments Prior to Arrival: none - Related Data Home Medications Medication Instructions Recorded Confirmed Last Taken Acetaminophen/Dp-Hydramine 1 each PO QDAY PRN 01/29/21 01/29/21 Unknown [Festus's Pm Powder Packet] Previous Rx's Medication Instructions Recorded Last Taken Type Metoprolol [Lopressor TAB] 25 mg PO BID #60 tablet 01/30/21 Unknown Rx Cyclobenzaprine [Flexeril] 10 mg PO QHS PRN #10 tablet 07/08/21 Unknown Rx Naproxen 500 mg PO Q12H PRN #12 tablet 07/08/21 Unknown Rx Allergies Allergy/AdvReac Type Severity Reaction Status Date / Time No Known Allergies Allergy Verified 07/08/21 17:49 ED Review of Systems ROS: Stated complaint: BACK AND SHOULDER PAIN,FINGER TIPS NUMB Other details as noted in HPI Comment: All other systems reviewed and negative Constitutional: denies: chills, fever Eyes: denies: eye pain, eye discharge, vision change ENT: denies: ear pain, throat pain Respiratory: denies: cough, shortness of breath, wheezing Cardiovascular: denies: chest pain, palpitations Endocrine: no symptoms reported Gastrointestinal: denies: abdominal pain, nausea, diarrhea Genitourinary: denies: urgency, dysuria Musculoskeletal: denies: back pain, joint swelling, arthralgia Skin: denies: rash, lesions Neurological: denies: headache, weakness, paresthesias Psychiatric: denies: anxiety, depression Hematological/Lymphatic: denies: easy bleeding, easy bruising ED Past Medical Hx - Past Medical History Hx Heart Attack/AMI: (a Fib) Hx Psychiatric Treatment: Yes (Alcoholic) Hx Asthma: Yes (as a kid) Additional medical history: AFIB, Alcohol abuse - Social History Smoking Status: Current Every Day Smoker Substance Use Type: None - Medications Home Medications: Home Medications Medication Instructions Recorded Confirmed Last Taken Type Acetaminophen/Dp-Hydramine 1 each PO QDAY PRN 01/29/21 01/29/21 Unknown History [[employer] Pm Powder Packet] Metoprolol [Lopressor TAB] 25 mg PO BID #60 tablet 01/30/21 Unknown Rx Cyclobenzaprine [Flexeril] 10 mg PO QHS PRN #10 tablet 07/08/21 Unknown Rx Naproxen 500 mg PO Q12H PRN #12 tablet 07/08/21 Unknown Rx ED Physical Exam - General Limitations: No Limitations General appearance: alert, in no apparent distress - Head Head exam: Present: atraumatic, normocephalic - Eye Eye exam: Present: normal appearance - ENT ENT exam: Present: normal exam - Neck Neck exam: Present: normal inspection, full ROM. Absent: lymphadenopathy - Respiratory Respiratory exam: Present: normal lung sounds bilaterally. Absent: respiratory distress, wheezes, rales, rhonchi, stridor, chest wall tenderness, accessory muscle use, decreased breath sounds, prolonged expiratory - Cardiovascular Cardiovascular Exam: Present: regular rate, normal rhythm, normal heart sounds. Absent: bradycardia, tachycardia, irregular rhythm, systolic murmur, diastolic murmur, rubs, gallop - GI/Abdominal GI/Abdominal exam: Present: soft, normal bowel sounds. Absent: distended, tenderness, guarding, rebound, rigid - Extremities Exam Extremities exam: Present: normal inspection, full ROM, normal capillary refill, other (Neurovascular within normal limits). Absent: tenderness, joint swelling - Back Exam Back exam: Present: normal inspection, full ROM, paraspinal tenderness (Cervical paraspinal). Absent: tenderness, CVA tenderness (R), CVA tenderness (L), muscle spasm, vertebral tenderness, rash noted - Neurological Exam Neurological exam: Present: alert, oriented X3, normal gait - Psychiatric Psychiatric exam: Present: normal affect, normal mood - Skin Skin exam: Present: warm, dry, intact, normal color. Absent: rash ED Course Vital Signs 07/08/21 07/08/21 07/08/21 17:54 18:06 18:17 Temperature 98.2 F 98.1 F Pulse Rate 84 73 Respiratory 18 17 18 Rate Blood Pressure 143/88 145/125 O2 Sat by Pulse 98 99 Oximetry - Reevaluation(s) Reevaluation #1: 07/08/21 18:29 Patient is speaking in full sentences with no signs of distress noted. ED Medical Decision [place] [address] XRay Report Signed Patient: BERNARDO MAYFIELD MR#: [id number] : 1985 Acct:[id number] Age/Sex: 36 / M ADM Date: 07/08/21 Loc: ED Attending Dr: Ordering Physician: IRIS BLAIR NP Date of Service: 07/08/21 Procedure(s): XR spine cervical 2-3V Accession Number(s): [id number] cc: IRIS BLAIR NP Fluoro Time In Minutes: XR spine cervical 2-3V HISTORY: neck pain COMPARISON: None. TECHNIQUE: 4 view(s) of the cervical spine obtained. FINDINGS: Vertebrae: Normal alignment. Vertebral body heights are preserved. C1 and C2 are congruent. Odontoid process is intact. Spondylosis:No significant abnormality. Soft tissues: No prevertebral soft tissue thickening. IMPRESSION: 1. No significant abnormality of the cervical spine. Signer Name: Sea Polanco MD Signed: 07/08/2021 7:01 PM Workstation Name: [id number] Transcribed By: CS Dictated By: Sea Polanco MD Electronically Authenticated By: Sea Polanco MD Signed Date/Time: 07/08/211900 DD/ 00 TD/TT: - Medical Decision Making This is a 36-year-old male that presents with upper back strain with radiculopathy. Patient is stable was examined by me. There is no spinal tenderness. There is no cauda equina syndrome during examination. No bladder or bowel instability. Patient received Toradol 60 mg IM, prednisone and Flexeril in the ED which stated that his symptoms has resolved and subsided. Patient stated family member will drive patient home after discharge due to possible drowsiness of Flexeril. Patient is discharged with muscle relaxant and Motrin. Patient was instructed not to operate any machinery while taking muscle relaxant as they cause her drowsiness. Patient is notified of the imaging results with no questions noted by the patient. Patient was referred to Follow- up with a primary care doctor in 3-5 days or if symptoms worsen and continue return to emergency room as soon as possible. At time of discharge, the patient does not seem toxic or ill in appearance. No acute signs of distress noted. Patient agrees to discharge treatment plan of care. No further questions noted by the patient. This chart is dictated with using [email or web address] Dictation Program Critical care attestation.: If time is entered above; I have spent that time in minutes in the direct care o f this critically ill patient, excluding procedure time. ED Disposition Clinical Impression: Muscle strain of upper back, Cervical radiculopathy Disposition: 01 HOME / SELF CARE / HOMELESS Is pt being admited?: No Does the pt Need Aspirin: No Condition: Stable Instructions: Muscle Strain, [id number], Cyclobenzaprine tablets, Cervical Radiculopathy Additional Instructions: Follow-up with a primary care and orthopedic doctor in 3-5 days or if symptoms worsen and continue return to emergency room as soon as possible. Prescriptions: Cyclobenzaprine [Flexeril] 10 mg PO QHS PRN #10 tablet PRN Reason: Muscle Spasm Naproxen 500 mg PO Q12H PRN #12 tablet PRN Reason: Pain , Severe (7-10) Referrals: PRIMARY CAREMD [Referring] - 3-5 Days MICHELE ROGERS MD [Staff Physician] - 3-5 Days JOSE ENRIQUE CONNELL MD [Staff Physician] - 3-5 Days Forms: Work/School Release Form(ED) Time of Disposition: 19:37
--- NOTE | 2021-07-08 19:05 | XRay Report ---
XR spine cervical 2-3V HISTORY: neck pain COMPARISON: None. TECHNIQUE: 4 view(s) of the cervical spine obtained. FINDINGS: Vertebrae: Normal alignment. Vertebral body heights are preserved. C1 and C2 are congruent. Odontoi d process is intact. Spondylosis:No significant abnormality. Soft tissues: No prevertebral soft tissue thickening. IMPRESSION: 1. No significant abnormality of the cervical spine. Signer Name: eSa Polanco MD Signed: 07/08/2021 7:01 PM Workstation Name: [id number]
[2021-07-08 19:57] VITALS: BP 122/70
== END 2021-07-08 20:15 | disposition home or self-care (01) ==
LOC: ED 17:45
DX: S29.012A Strain of muscle and tendon of back wall of thorax, initial encounter (principal); M54.12 Radiculopathy, cervical region; J45.909 Unspecified asthma, uncomplicated; F17.200 Nicotine dependence, unspecified, uncomplicated; Z79.899 Other long term (current) drug therapy; V87.7XXA Person injured in collision between other specified motor vehicles (traffic), initial encounter; Y93.89 Activity, other specified; Y92.488 Other paved roadways as the place of occurrence of the external cause; Y99.8 Other external cause status
CPT/HCPCS: 72040; 96372; 99283; J1885; J7512

== ENCOUNTER 2021-09-20 17:55 | Emergency (ER) | payer SELFPAY ==
[2021-09-21 01:32] VITALS: BP 144/94
--- NOTE | 2021-09-21 01:55 | Emergency Department Report ---
- General Chief Complaint: Upper Respiratory Infection Stated Complaint: VOMITNG Source: patient Mode of arrival: Ambulatory Limitations: No Limitations - History of Present Illness Initial Comments: Patient is a 36-year-old white male with a history of A. fib who presented to the ED with complaint of acute onset persistent nasal and sinus congestion, frontal sinus pressure and headache, sore throat, persistent dry cough with intermittent subjective fever and chills as well as body aches and pains for the last 4 days. Patient states that his little niece had similar symptoms and that he may have contracted the same symptoms from his niece. Patient states that he has been taking bwpa-[id number]-ipzpray medication with no relief. Patient states that the symptoms have been persistent worse especially in the last 24 hours. Patient denies dizziness, syncope, chest pain, shortness of breath, nausea, vomiting, diarrhea, abdominal pain, dysuria, urinary frequency and urgency or change in vision. MD Complaint: cough, sore throat, rhinorrhea, nasal congestion, sinus pain -: Gradual, Sudden, days(s) (4) Severity: severe Severity scale (0 -10): 7 Quality: sharp, aching Consistency: constant Improves With: nothing Worsens With: nothing Context: sick contacts Associated Symptoms: denies other symptoms, fever, chills, myalgias, headache, rhinorrhea, nasal congestion, sore throat, cough. denies: diaphoresis, shortness of breath, abdominal pain, nausea, diarrhea, rash, confusion, right sweats, weight loss, epistaxis, hoarseness, ear pain Treatments Prior to Arrival: "cold medicine" - Related Data Home Medications Medication Instructions Recorded Confirmed Last Taken Acetaminophen/Dp-Hydramine 1 each PO QDAY PRN 01/29/21 01/29/21 Unknown [Festus's Pm Powder Packet] Previous Rx's Medication Instructions Recorded Last Taken Type Metoprolol [Lopressor TAB] 25 mg PO BID #60 tablet 01/30/21 Unknown Rx Cyclobenzaprine [Flexeril] 10 mg PO QHS PRN #10 tablet 07/08/21 Unknown Rx Naproxen 500 mg PO Q12H PRN #12 tablet 07/08/21 Unknown Rx Acetaminophen [Tylenol] 500 mg PO Q6HR PRN #30 tablet 09/21/21 Unknown Rx Azithromycin [Zithromax Z-ANICETO] 250 mg PO DAILY #6 tablet 09/21/21 Unknown Rx Benzonatate [Tessalon Perles] 100 mg PO Q8HR #30 capsule 09/21/21 Unknown Rx Cetirizine HCl [Zyrtec 10mg tab] 10 mg PO DAILY #30 tablet 09/21/21 Unknown Rx Allergies Allergy/AdvReac Type Severity Reaction Status Date / Time No Known Allergies Allergy Verified 09/20/21 21:23 ED Review of Systems ROS: Stated complaint: VOMITNG Other details as noted in HPI Constitutional: chills, fever, malaise Eyes: denies: eye pain, eye discharge, vision change ENT: throat pain, congestion, other (Frontal sinus pressure). denies: ear pain Respiratory: cough. denies: shortness of breath, wheezing Cardiovascular: denies: chest pain, palpitations Endocrine: no symptoms reported Gastrointestinal: denies: abdominal pain, nausea, vomiting, diarrhea Genitourinary: denies: urgency, dysuria Musculoskeletal: back pain, arthralgia, myalgia. denies: joint swelling Skin: denies: rash, lesions Neurological: headache. denies: weakness, paresthesias Psychiatric: denies: anxiety, depression Hematological/Lymphatic: denies: easy bleeding, easy bruising ED Past Medical Hx - Past Medical History Hx Heart Attack/AMI: (a Fib) Hx Psychiatric Treatment: Yes (Alcoholic) Hx Asthma: Yes (as a kid) Additional medical history: AFIB, Alcohol abuse - Surgical History Past Surgical History?: No - Social History Smoking Status: Current Every Day Smoker Substance Use Type: None - Medications Home Medications: Home Medications Medication Instructions Recorded Confirmed Last Taken Type Acetaminophen/Dp-Hydramine 1 each PO QDAY PRN 01/29/21 01/29/21 Unknown History [[employer]'s Pm Powder Packet] Metoprolol [Lopressor TAB] 25 mg PO BID #60 tablet 01/30/21 Unknown Rx Cyclobenzaprine [Flexeril] 10 mg PO QHS PRN #10 tablet 07/08/21 Unknown Rx Naproxen 500 mg PO Q12H PRN #12 tablet 07/08/21 Unknown Rx Acetaminophen [Tylenol] 500 mg PO Q6HR PRN #30 tablet 09/21/21 Unknown Rx Azithromycin [Zithromax Z-ANICETO] 250 mg PO DAILY #6 tablet 09/21/21 Unknown Rx Benzonatate [Tessalon Perles] 100 mg PO Q8HR #30 capsule 09/21/21 Unknown Rx Cetirizine HCl [Zyrtec 10mg tab] 10 mg PO DAILY #30 tablet 09/21/21 Unknown Rx ED Physical Exam - General Limitations: No Limitations General appearance: alert, in no apparent distress - Head Head exam: Present: atraumatic, normocephalic, normal inspection - Eye Eye exam: Present: normal appearance, PERRL, EOMI Pupils: Present: normal accommodation - ENT ENT exam: Present: normal orophraynx, mucous membranes moist, TM's normal bilaterally, normal external ear exam, other (Grossly congested nasal passages; palpable frontal sinus tenderness) - Neck Neck exam: Present: normal inspection, full ROM - Respiratory Respiratory exam: Present: normal lung sounds bilaterally. Absent: respiratory distress, wheezes, rales, rhonchi, stridor, chest wall tenderness, accessory muscle use, decreased breath sounds, prolonged expiratory - Cardiovascular Cardiovascular Exam: Present: regular rate, normal rhythm, normal heart sounds. Absent: systolic murmur, diastolic murmur, rubs, gallop - GI/Abdominal GI/Abdominal exam: Present: soft, normal bowel sounds. Absent: tenderness, guarding, rebound, hyperactive bowel sounds - Extremities Exam Extremities exam: Present: normal inspection, full ROM, normal capillary refill - Back Exam Back exam: Present: normal inspection, full ROM. Absent: tenderness, CVA tenderness (R), CVA tenderness (L), muscle spasm, paraspinal tenderness, vertebral tenderness - Neurological Exam Neurological exam: Present: alert, oriented X3, CN II-XII intact, normal gait, reflexes normal - Psychiatric Psychiatric exam: Present: normal affect, normal mood - Skin Skin exam: Present: warm, dry, intact, normal color. Absent: rash ED Course Vital Signs 09/20/21 21:25 Temperature 98.0 F Pulse Rate 80 Respiratory 17 Rate Blood Pressure 144/94 O2 Sat by Pulse 98 Oximetry ED Medical Decision Making - Radiology Data Radiology results: report reviewed - Medical Decision Making This is a 36-year-old white male with a history of A. fib who presented to the ED with complaint of acute onset persistent nasal and sinus congestion, frontal sinus pressure and headache, sore throat, persistent dry cough with intermittent subjective fever and chills as well as body aches and pains for the last 4 days. Patient states that his little niece had similar symptoms and that he may have contracted the same symptoms from his niece. Patient states that he has been taking [id number] medication with no relief. Patient states that the symptoms have been persistent worse especially in the last 24 hours. In the ED, patient is alert and oriented x3 and is not in any distress. Patient is hemodynamically stable. Patient will discharge home on medications based on the physical exam findings and the history. Patient was advised to follow-up with his primary care physician in 7 to 10 days for reevaluation. Patient is advised return to the ED immediately if symptoms get worse. - Differential Diagnosis URI; sinusitis; pharyngitis; bronchitis; pneumonia; COVID-19 Critical care attestation.: If time is entered above; I have spent that time in minutes in the direct care of this critically ill patient, excluding procedure time. ED Disposition Clinical Impression: Acute upper respiratory infection Acute frontal sinusitis Qualifiers: Recurrence: non-recurrent Qualified Code(s): J01.10 - Acute frontal sinusitis, unspecified Acute bronchitis Qualifiers: Bronchitis organism: unspecified organism Qualified Code(s): J20.9 - Acute bronchitis, unspecified Disposition: 01 HOME / SELF CARE / HOMELESS Is pt being admited?: No Does the pt Need Aspirin: No Condition: Stable Instructions: Acute Bronchitis (ED), Sinusitis, Adult, [id number], Upper Respiratory Infection, Adult, [id number]-[id number], Cough, Adult, Kbdo-[id number], Acute Bronchitis, Adult, Uovz-[id number]-[id number] Additional Instructions: Take medication with food, drink plenty of fluids and follow-up with your primary care physician in 7 to 10 days for reevaluation. Return to the ED im mediately if symptoms get worse. Prescriptions: Acetaminophen [Tylenol] 500 mg PO Q6HR PRN #30 tablet PRN Reason: Pain or fever Benzonatate [Tessalon Perles] 100 mg PO Q8HR #30 capsule Azithromycin [Zithromax Z-ANICETO] 250 mg PO DAILY #6 tablet Cetirizine HCl [Zyrtec 10mg tab] 10 mg PO DAILY #30 tablet Referrals: [facility] [Provider Group] - 3-5 Days Forms: Work/School Release Form(ED) Time of Disposition: 01:56 Print Language: SINGAPOREAN
== END 2021-09-21 02:20 | disposition home or self-care (01) ==
LOC: ED 17:55
DX: J22 Unspecified acute lower respiratory infection (principal); J45.909 Unspecified asthma, uncomplicated; I21.9 Acute myocardial infarction, unspecified; F10.20 Alcohol dependence, uncomplicated; F17.200 Nicotine dependence, unspecified, uncomplicated; Z79.899 Other long term (current) drug therapy
CPT/HCPCS: 99282

== ENCOUNTER 2021-10-09 16:18 | Emergency (ER) | payer SELFPAY ==
[2021-10-09 18:06] VITALS: BP 143/77
--- NOTE | 2021-10-09 19:18 | Emergency Department Report ---
ED General Adult HPI - General Chief complaint: Medical Clearance Stated complaint: POSS BRONCHITIS Time Seen by Provider: 10/09/21 19:10 Source: patient Mode of arrival: Ambulatory Limitations: No Limitations - History of Present Illness Initial comments: Patient presented for medical clearance to go back to work. He actually states that he had to have bronchitis. He was feeling better. His employer told him that he needed a negative COVID test and a work note that said he could return to work on Monday. He has a negative COVID test. He came here for the work note. He states that he did have cough and congestion. There was no trauma. He had had subjective fevers and chills. He was not certain about COVID, but did get a test that was negative recently. He did not get vaccinated for influenza. - Related Data Home Medications Medication Instructions Recorded Confirmed Last Taken Acetaminophen/Dp-Hydramine 1 each PO QDAY PRN 01/29/21 01/29/21 Unknown [[employer]'s Pm Powder Packet] Previous Rx's Medication Instructions Recorded Last Taken Type Metoprolol [Lopressor TAB] 25 mg PO BID #60 tablet 01/30/21 Unknown Rx Cyclobenzaprine [Flexeril] 10 mg PO QHS PRN #10 tablet 07/08/21 Unknown Rx Naproxen 500 mg PO Q12H PRN #12 tablet 07/08/21 Unknown Rx Acetaminophen [Tylenol] 500 mg PO Q6HR PRN #30 tablet 09/21/21 Unknown Rx Azithromycin [Zithromax Z-ANICETO] 250 mg PO DAILY #6 tablet 09/21/21 Unknown Rx Benzonatate [Tessalon Perles] 100 mg PO Q8HR #30 capsule 09/21/21 Unknown Rx Cetirizine HCl [Zyrtec 10mg tab] 10 mg PO DAILY #30 tablet 09/21/21 Unknown Rx Allergies Allergy/AdvReac Type Severity Reaction Status Date / Time No Known Allergies Allergy Verified 10/09/21 18:06 ED Review of Systems ROS: Stated complaint: POSS BRONCHITIS Other details as noted in HPI Comment: All other systems reviewed and negative Constitutional: see HPI Eyes: denies: eye pain ENT: denies: ear pain Respiratory: see HPI Cardiovascular: denies: chest pain Endocrine: denies: unexplained weight loss Gastrointestinal: denies: vomiting Genitourinary: denies: dysuria Musculoskeletal: denies: back pain Skin: denies: rash Neurological: denies: headache Hematological/Lymphatic: denies: easy bruising ED Past Medical Hx - Past Medical History Hx Heart Attack/AMI: (a Fib) Hx Psychiatric Treatment: Yes (Alcoholic) Hx Asthma: Yes (as a kid) Additional medical history: AFIB, Alcohol abuse - Social History Smoking Status: Current Every Day Smoker Substance Use Type: None - Medications Home Medications: Home Medications Medication Instructions Recorded Confirmed Last Taken Type Acetaminophen/Dp-Hydramine 1 each PO QDAY PRN 01/29/21 01/29/21 Unknown History [[employer] Pm Powder Packet] Metoprolol [Lopressor TAB] 25 mg PO BID #60 tablet 01/30/21 Unknown Rx Cyclobenzaprine [Flexeril] 10 mg PO QHS PRN #10 tablet 07/08/21 Unknown Rx Naproxen 500 mg PO Q12H PRN #12 tablet 07/08/21 Unknown Rx Acetaminophen [Tylenol] 500 mg PO Q6HR PRN #30 tablet 09/21/21 Unknown Rx Azithromycin [Zithromax Z-ANICETO] 250 mg PO DAILY #6 tablet 09/21/21 Unknown Rx Benzonatate [Tessalon Perles] 100 mg PO Q8HR #30 capsule 09/21/21 Unknown Rx Cetirizine HCl [Zyrtec 10mg tab] 10 mg PO DAILY #30 tablet 09/21/21 Unknown Rx ED Physical Exam - General Limitations: No Limitations, Other (Socks noted and normal) General appearance: alert, in no apparent distress - Head Head exam: Present: atraumatic, normocephalic - Eye Eye exam: Present: normal appearance, EOMI - ENT ENT exam: Present: normal orophraynx, normal external ear exam - Neck Neck exam: Present: normal inspection. Absent: meningismus - Respiratory Respiratory exam: Present: normal lung sounds bilaterally. Absent: respiratory distress - Cardiovascular Cardiovascular Exam: Present: regular rate, normal rhythm - GI/Abdominal GI/Abdominal exam: Present: soft. Absent: distended, tenderness - Extremities Exam Extremities exam: Present: normal capillary refill - Back Exam Back exam: Absent: CVA tenderness (R), CVA tenderness (L) - Neurological Exam Neurological exam: Present: alert, oriented X3, normal gait - Psychiatric Psychiatric exam: Present: normal affect, normal mood - Skin Skin exam: Present: warm, dry ED Course Vital Signs 10/09/21 18:05 Temperature 97.9 F Pulse Rate 77 Respiratory 18 Rate Blood Pressure 143/77 [Right] O2 Sat by Pulse 99 Oximetry - Reevaluation(s) Reevaluation #1: 10/09/21 20:51 Patient was discharged ED Medical Decision Making - Medical Decision Making Patient presented basically for a work note to go back to work. He had upper respiratory symptoms. He has a negative COVID swab. He was medically cleared to go back to work. Critical Care Time: No Critical care attestation.: If time is entered above; I have spent that time in minutes in the direct care of this critically ill patient, excluding procedure time. ED Disposition Clinical Impression: Viral URI Disposition: HOME / SELF CARE / HOMELESS Is pt being admited?: No Condition: Stable Instructions: Viral Respiratory Infection, Dqjy-Re-[id number] Additional Instructions: RETURN FOR PROBLEMS. SEE YOUR DOCTOR FOR RECHECK. Referrals: ELFEGO BEAR MD [Primary Care Provider] - 3-5 Days KATHRYN HANSON MD [Staff Physician] - 3-5 Days Forms: Work/School Release Form(ED)
== END 2021-10-09 20:18 | disposition home or self-care (01) ==
LOC: ED 16:18
DX: J06.9 Acute upper respiratory infection, unspecified (principal); I21.9 Acute myocardial infarction, unspecified; J45.909 Unspecified asthma, uncomplicated; F17.200 Nicotine dependence, unspecified, uncomplicated
CPT/HCPCS: 99282